=== PATIENT | female | born 1990 | race Caucasian/White ===

== ENCOUNTER 2017-02-24 20:53 | Emergency (ER) | payer OTHER ==
[~2017-02-24] VITALS: Ht 162.6 cm; Wt 70.5 kg
[~2017-02-24 20:53] MED LIST: ACET500C5 PO; AMO500 PO; BACTDS PO; CEPH-443 PO; DOXY100T20 PO; HYDR-906 PO; IBUP800T25 PO; MAG355OR15 PO; ONDA4TAB35 PO; [UNRECOGNIZED DRUG - REMARK]
[2017-02-24 20:55] VITALS: Ht 162.6 cm; Wt 70.5 kg
--- NOTE | 2017-02-24 22:17 | ERD ---
ER Documentation Chief Complaint Date/Time DATE: 02/24/17 TIME: 22:13 Chief Complaint 4 wks , pelvic pain rachael 1 hour ago HPI 26-year-old female presents here in emergency department complains of pelvic pain that started one hour prior to arrival. Patient states that the pain is actually resolved. Patient describes the pain as cramping pain 4/10 scale, not better are worse with anything. Patient denies any flank pain. Patient denies any vaginal bleeding. Patient just that she was 5 days ago, patient's LMP 01/19/2017. Patient states that she is approximately 4 weeks . Patient denies any hematuria or dysuria. She denies any fever or chills. Denies any nausea or vomiting. ROS All systems reviewed and are negative except as per history of present illness. Medications Home Meds Active Scripts Cephalexin* (Keflex*) 500 Mg Capsule, 500 MG PO QID for 10 Days, CAP Prov:ESTELA OILVARES NP 06/22/16 Sulfamethoxazole-Trimethoprim* (Bactrim* DS) 800-160 Mg Tab, 1 TAB PO BID for 10 Days, TAB Prov:ESTELA OLIVARES NP 06/22/16 Ibuprofen* (Motrin*) 800 Mg Tab, 800 MG PO Q6, #30 TAB Prov:ANAY GONZALEZ PA-C 06/08/16 Hydrocodone/Acetaminophen (Morganza 5-325 Tablet) 1 Each Tablet, 1 TAB PO Q6H Y for PAIN, #10 TAB Prov:ANAY GONZALEZ PA-C 06/08/16 Doxycycline Hyclate* (Doxycycline Hyclate*) 100 Mg Tablet.dr, 100 MG PO BID for 10 Days, TAB Prov:ANAY GONZALEZ PA-C 06/08/16 Acetaminophen* (Tylophen*) 500 Mg Capsule, 1 CAP PO Q6H Y for PAIN AND OR ELEVATED TEMP, #20 CAP Prov:MAITE BARTON PA-C 06/05/16 Amoxicillin* (Amoxicillin*) 500 Mg Cap, 500 MG PO BID for 10 Days, CAP Prov:MAITE BARTON-C 06/05/16 Acetaminophen* (Tylophen*) 500 Mg Capsule, 1 CAP PO Q6H Y for PAIN AND OR ELEVATED TEMP, #20 CAP Prov:DAMARIS WINN PA-C 09/03/15 Ondansetron Hcl* (Zofran* ODT) 4 mg -ODT Tab.disper, 4 MG PO Q6 Y for NAUSEA AND /OR VOMITING, #10 TAB Prov:DAMARIS WINN PA-C 09/03/15 Mag Hydrox/Al Hydrox/Simeth (Maalox Max Strength Susp) 769 Ml Oral.susp, 15 ML PO BID Y for upset stomach, #240 ML No more than 40 mL in 24 hours Prov:DAMARIS WINN PA-C 09/03/15 Reported Medications [Pain Med Unk] No Conflict Check 11/18/11 Allergies Allergies: Coded Allergies: No Known Allergy (Verified , 06/22/16) PMhx/Soc Medical and Surgical Hx: pt denies Medical Hx History of Surgery: Yes (C section) Anesthesia Reaction: No Hx Neurological Disorder: No Hx Respiratory Disorders: No Hx Cardiac Disorders: No Hx Psychiatric Problems: No Hx Miscellaneous Medical Probl: No Hx Alcohol Use: No Hx Substance Use: No Hx Tobacco Use: No Smoking Status: Never smoker FmHx Family History: diabetes Physical Exam Vitals Vital Signs Date Time Temp Pulse Resp B/P Pulse Ox O2 Delivery O2 Flow Rate FiO2 02/24/17 20:55 98.5 87 20 139/80 99 Physical Exam GENERAL: The patient is well developed and appropriate for usual state of health, in no apparent distress. CHEST: Clear to auscultation bilaterally. There are no rales, wheezes or rhonchi. HEART: Regular rate and rhythm. No murmurs, clicks, rubs or gallops. No S3 or S4. ABDOMEN: Soft, nontender and nondistended. Good bowel sounds. No rebound or guarding. No gross peritonitis. No gross organomegaly or masses. No Young sign or McBurney point tenderness. BACK: No midline or flank tenderness. EXTREMITIES: Equal pulses bilaterally. There is no peripheral clubbing, cyanosis or edema. No focal swelling or erythema. Full range of motion. Grossly neurovascularly intact. NEURO: Alert and oriented. Cranial nerves 2-12 intact. Motor strength in all 4 extremities with 5/5 strength. Sensation grossly intact. Normal speech and gait. SKIN: There is no apparent rash or petechia. The skin is warm and dry. HEMATOLOGIC AND LYMPHATIC: There is no evidence of excessive bruising or lymphedema. No gross cervical, axillary, or inguinal lymphadenopathy. Result Diagram: 02/24/179 Results 24 hrs Laboratory Tests Test 02/24/17 22:09 02/24/17 22:53 White Blood Count 6.710^3/ul Red Blood Count 4.1510^6/ul Hemoglobin 12.2g/dl Hematocrit 37.9% Mean Corpuscular Volume 91.3fl Mean Corpuscular Hemoglobin 29.4pg Mean Corpuscular Hemoglobin Concent 32.2g/dl Red Cell Distribution Width 12.1% Platelet Count 81472^3/UL Mean Platelet Volume 10.5fl Neutrophils % 67.1% Lymphocytes % 21.7% Monocytes % 9.9% Eosinophils % 0.6% Basophils % 0.4% Nucleated Red Blood Cells % 0.0/100WBC Neutrophils # (Manual) 410^3/ul Lymphocytes # 1.510^3/ul Monocytes # 0.710^3/ul Eosinophils # 0.010^3/ul Basophils # 0.010^3/ul Nucleated Red Blood Cells # 0.010^3/ul Beta HCG, Quantitative 9006.6mIU/ml Urine Color YELLOW Urine Clarity CLEAR Urine pH 5.0 Urine Specific Tamiment 1.018 Urine Ketones 1+mg/dL Urine Nitrite NEGATIVEmg/dL Urine Bilirubin NEGATIVEmg/dL Urine Urobilinogen NEGATIVEmg/dL Urine Leukocyte Esterase NEGATIVELeu/ul Urine Microscopic RBC 0/HPF Urine Microscopic WBC 0/HPF Urine Hemoglobin NEGATIVEmg/dL Urine Glucose NEGATIVEmg/dL Urine Total Protein NEGATIVEmg/dl PROCEDURE: FIRST TRIMESTER OBSTETRICAL ULTRASOUND: CLINICAL INDICATION: 26 years of age, female. Pelvic pain . COMPARISON: None available. TECHNIQUE: Real-time sonographic images of the pelvis were obtained transabdominally and transvaginally utilizing gr scale, color, and Doppler imaging. FINDINGS: LMP January 19, 2017 EGA by dates: 5 weeks 1 day DAVID by dates: October 26, 2017 Uterus: Anteverted . Myometrium is normal Gestational sac: There is an intrauterine with an intrauterine gestational sac and yolk sac. An embryo is not identified. Mean sac diameter measures 0.7 cm , compatible with an average ultrasound age of 5 weeks 2 days . Yolk sac: Present. There is a small subchorionic hemorrhage measuring 0.3 x 0.4 cm. Cervix: Closed. Right ovary: Size: 2.7 x 2.1 x 2.2 cm. (Vol 6.5 mL) Appearance: Normal morphology. No masses. Arterial flow is identified to duplex Doppler assessment. Left ovary: Size: 3.2 x 2.4 x 2.5 cm. (Vol 10.2 mL) Appearance: Normal morphology. No masses. Arterial flow is identified to duplex Doppler assessment. Bladder: Visualized bladder is normal. Other: No free fluid. IMPRESSION: Intrauterine of unknown viability. There is an intrauterine gestational sac and yolk sac. At this early gestational age, an embryo is not yet identified and viability cannot be established. The estimated gestational age by mean sac diameter is concordant with the expected gestational age by dates within 1 day. Recommend follow-up ultrasound in 10-14 days or earlier if clinically warranted. Small subchorionic hemorrhage. RPTAT: HCTS Physician Delon Date Time Electronically viewed and signed by Adiel Hooks Physician on 02/24/2017 23: 44 CS/ CC: ESTELA OLIVARES TECHNICAL MARKETING ENGINEER Procedures/MDM Medical Decision Making: Patient's on-and-off pelvic pain nonspecific at this time. Patient has a intrauterine noted in the ultrasound, most likely indicating early gestation. Patient's beta hCG is elevated consistent with her . Low suspicion for ectopic .. There is low suspicion for abdominal emergencies at this time. Patients abdominal exam is normal at this time. Patients radiology exam does not show any abdominal emergencies at this time. There is low suspicion for appendicitis, cholecystitis, abdominal aortic aneurysms or peritonitis at this time. There is low suspicion for sepsis. Patient appears well and is hemodynamically stable. No leukocytosis, no bandemia. Low suspicion for any acute bacterial infection. No urinary tract infection. Disposition: Home. Condition: Stable Prescription Tylenol Instructions: Patient is advised to take medications as prescribed. Patient is advised to rest, increase fluid intake and do the yoker machine operator specialist to check her and for follow-up. Patient is advised that if symptoms are worse, severe abdominal pain, uncontrolled vomiting, high fever, severe flank pain, worst signs and symptoms, to return to the emergency department immediately. Otherwise, patient can follow up with primary care doctor in 5-7 days. Departure Diagnosis: Primary Impression: Pelvic pain Additional Impression: Intrauterine Condition: Stable Patient Instructions: Pelvic Pain In : Unclear (2-3 Trimester) Additional Instructions: Patient is advised to take medications as prescribed. Patient is advised to rest , increase fluid intake and do the yoker machine operator specialist to check her and for follow-up. Patient is advised that if symptoms are worse, severe abdominal pain, uncontrolled vomiting, high fever, severe flank pain, worst signs and symptoms, to return to the emergency department immediately. Otherwise, patient can follow up with primary care doctor in 5-7 days. ESTELA OLIVARES NP Feb 24, 2017 22:17
[2017-02-24 22:57] LABS: BASOPHILS % 0.4 % (0.0-2.0); EOSINOPHILS % 0.6 % (0.0-7.0); HEMATOCRIT 37.9 % (37.0-47.0); HEMOGLOBIN 12.2 g/dl (12.0-16.0); LYMPHOCYTES # 1.5 10^3/ul (0.8-2.9); LYMPHOCYTES % 21.7 % (15.0-51.0); MEAN CORPUSCULAR HEMOGLOBIN 29.4 pg (29.0-33.0); MEAN CORPUSCULAR HGB CONC 32.2 g/dl (32.0-37.0); MEAN CORPUSCULAR VOLUME 91.3 fl (82.0-101.0); MEAN PLATELET VOLUME 10.5 fl (7.4-10.4); MONOCYTE # 0.7 10^3/ul (0.3-0.9); MONOCYTES % 9.9 % (0.0-11.0); NEUTROPHILS % 67.1 % (39.0-77.0); PLATELET COUNT 224 10^3/UL (140-415); RED BLOOD COUNT 4.15 10^6/ul (4.20-5.40); RED CELL DISTRIBUTION WIDTH 12.1 % (11.5-14.5); WHITE BLOOD COUNT 6.7 10^3/ul (4.8-10.8)
--- NOTE | 2017-02-24 23:44 | RADRPT ---
PROCEDURE: FIRST TRIMESTER OBSTETRICAL ULTRASOUND: CLINICAL INDICATION: 26 years of age, female. Pelvic pain . COMPARISON: None available. TECHNIQUE: Real-time sonographic images of the pelvis were obtained transabdominally and transvagina lly utilizing gr scale, color, and Doppler imaging. FINDINGS: LMP January 19, 2017 EGA by dates: 5 weeks 1 day DAVID by dates: October 26, 2017 Uterus: Anteverted . Myometrium is normal Gestational sac: There is an intrauterine with an intrauterine gestational sac and yolk sa c. An embryo is not identified. Mean sac diameter measures 0.7 cm , compatible with an average ultrasound age of 5 weeks 2 days . Yolk sac: Present. There is a small subchorionic hemorrhage measuring 0.3 x 0.4 cm. Cervix: Closed. Right ovary: Size: 2.7 x 2.1 x 2.2 cm. (Vol 6.5 mL) Appearance: Normal morphology. No masses. Arterial flow is identified to duplex Doppler assessment. Left ovary: Size: 3.2 x 2.4 x 2.5 cm. (Vol 10.2 mL) Appearance: Normal morphology. No masses. Arterial flow is identified to duplex Doppler assessment. Bladder: Visualized bladder is normal. Other: No free fluid. IMPRESSION: Intrauterine of unknown viability. There is an intrauterine gestational sac and yolk sac. At this early gestational age, an embryo is not yet identified and viability cannot be established. The estimated gestational age by mean sac diameter is concordant with the expected gestational age by dates within 1 day. Recommend follow-up ultrasound in 10-14 days or earlier if clinically warra nted. Small subchorionic hemorrhage. RPTAT: HCTS Physician Delon Date Time Electronically viewed and signed by Physician Delon on 02/24/2017 23:44 CS/
[2017-02-24 23:59] LABS: ADD UMIC NO; UR ASCORBIC ACID NEGATIVE (NEGATIVE); UR BILIRUBIN (Dip) NEGATIVE (NEGATIVE); UR BLOOD (Dip) NEGATIVE (NEGATIVE); UR CLARITY CLEAR (CLEAR); UR COLOR YELLOW (YELLOW); UR GLUCOSE (Dip) NEGATIVE (NEGATIVE); UR KETONES (Dip) 1+ mg/dL (NEGATIVE); UR LEUKOCYTE ESTERASE (Dip) NEGATIVE Leu/ul (NEGATIVE); UR NITRITE (Dip) NEGATIVE (NEGATIVE); UR RBC 0 /HPF (0-5); UR SPECIFIC GRAVITY (Dip) 1.018 (1.003-1.030); UR TOTAL PROTEIN (Dip) NEGATIVE (NEGATIVE); UR UROBILINOGEN (Dip) NEGATIVE (NEGATIVE)
[2017-02-25] MEDS ORDERED: ACET500C5 PO (00:03)
[2017-02-25 00:16] VITALS: BP 136/80; PULSE 77; RESP 18; TEMP 98.1
== END 2017-02-25 00:18 | disposition home or self-care (01) ==
LOC: FTE 20:53
DX: O26.891 Other specified pregnancy related conditions, first trimester (principal); R10.2 Pelvic and perineal pain; Z3A.01 Less than 8 weeks gestation of pregnancy
CPT/HCPCS: 36415; 76801; 76817; 81003; 84702; 85025; 86900; 86901; Z7502

== ENCOUNTER 2017-08-20 08:52 | Outpatient (CLI) | END 2017-08-20 10:55 | disposition home or self-care (01) ==

== ENCOUNTER 2017-09-12 16:50 | Outpatient (CLI) | END 2017-09-12 17:15 | disposition home or self-care (01) ==

== ENCOUNTER 2017-09-12 17:23 | Emergency (ER) | END 2017-09-12 18:40 | disposition home or self-care (01) ==

== ENCOUNTER 2017-09-13 04:28 | Emergency (ER) | END 2017-09-13 09:39 | disposition home or self-care (01) ==

== ENCOUNTER 2017-10-20 19:48 | Inpatient (IN) | END 2017-10-23 15:54 | disposition home or self-care (01) | DRG 766 ==